=== PATIENT | female | born 1940 | race Caucasian/White ===

== ENCOUNTER 2016-09-02 10:43 | Inpatient (IN) | payer OTHER, MEDICARE ==
[~2016-09-02] VITALS: Ht 162.6 cm; Wt 89.4 kg
[2016-09-02 10:43] VITALS: BP 144/75; PULSE 103; RESP 22; TEMP 97.2; O2SAT 96
[2016-09-02] MEDS ORDERED: KETOROLAC TROMETHAMINE 30 MG VIAL IVP ONE (11:15)
[2016-09-02] MEDS ORDERED: ONDANSETRON HCL 4 MG/2 ML VIAL IVP ONE (11:15)
[2016-09-02] MEDS ORDERED: HYDROmorphone 1 MG INJ. 1 MG/ML AMPUL IVP ONE ×2 (11:30→12:30)
[2016-09-02 11:36] LABS: ANION GAP 11 (5-15); CALCIUM 10.6 mg/dL (8.4-11.0); CHLORIDE 100 mmol/L (98-107); CREATININE 0.57 mg/dL (0.55-1.30); GLUCOSE 137 mg/dL (70-99); POTASSIUM 3.2 mmol/L (3.5-5.1); SODIUM SERUM 140 mmol/L (136-145); UREA NITROGEN, BLOOD 15 mg/dL (8-21)
[2016-09-02 11:37] LABS: BASOPHILS # (AUTO) 0.3 K/uL (0.0-0.2); BASOPHILS % (AUTO) 2.5 % (0.0-2.0); HEMOGLOBIN 15.3 g/dL (12.0-16.0); LYMPHOCYTES # (AUTO) 0.9 K/uL (1.0-5.5); LYMPHOCYTES % (AUTO) 8.1 % (20.5-51.5); MEAN CORPUSCULAR HEMOGLOBIN 30 pg (27-31); MEAN CORPUSCULAR HGB CONC 34 % (32-36); MEAN CORPUSCULAR VOLUME 87 fL (79.0-98.0); MONOCYTES # (AUTO) 0.5 K/uL (0.0-1.0); MONOCYTES % (AUTO) 4.9 % (1.7-9.3); NEUTROPHILS # (AUTO) 8.9 K/uL (1.8-7.7); NEUTROPHILS % (AUTO) 84.5 % (40.0-70.0); PLATELET COUNT (AUTO) 235 K/uL (130-430); RED BLOOD CELL COUNT(AUTO) 5.16 MIL/uL (4.2-6.2); RED CELL DISTRIBUTION WIDTH 12.2 % (9.0-15.0); WHITE BLOOD COUNT (AUTO) 10.6 K/uL (4.8-10.8)
[2016-09-02 11:40] LABS: ALANINE AMINOTRANSFERASE 46 U/L (12-78); ALBUMIN 4.4 g/dL (3.4-4.8); AMYLASE 14 U/L (0-100); ASPARTATE AMINOTRANSFERASE 25 U/L (10-37); LIPASE 74 U/L (73-393); TOTAL BILIRUBIN 0.7 mg/dL (0.0-1.0); TOTAL PROTEIN, SERUM 8.4 g/dL (6.4-8.3)
[2016-09-02] MEDS ORDERED: NACL 0.9% 1,000 ML IV ONE (13:00)
[2016-09-02 14:14] VITALS: BP 151/85; PULSE 93; RESP 20; TEMP 97.6; O2SAT 93
[2016-09-02] MEDS ORDERED: ONDANSETRON HCL 4 MG/2 ML VIAL IVP PRN (14:30)
[2016-09-02] MEDS ORDERED: LR 1,000 ML IV SCH (14:30)
[2016-09-02] MEDS ORDERED: IPRATROPIUM/ALBUTEROL SULFATE 3 ML AMPUL.NEB INH PRN (14:30)
[2016-09-02] MEDS ORDERED: GASTROGRAFIN 120 ML ONE (14:52)
[2016-09-02] MEDS ORDERED: FAMOTIDINE PF 20 MG/2 ML VIAL IVP ONE (15:00)
[2016-09-02] MEDS ORDERED: POTASSIUM CHLORIDE 40 MEQ, LIDOCAINE JECT 2% PF 100 MG 50 MG in NS 250 ML IV ONE (15:30)
[2016-09-02] MEDS: MORPHINE 2 MG/ML INJ. SYRINGE IVP PRN ×2 (16:13→23:14)
[2016-09-02] MEDS ORDERED: DEXTROSE 50% JECT 50 ML DISP.SYRIN IVP PRN (16:15)
[2016-09-02] MEDS ORDERED: INSULIN REGULAR, HUMAN 100 UNITS/ML, 10 ML VIAL (novoLIN R) SUBCUT PRN (16:15)
[2016-09-02] MEDS: LORazepam 2 MG/ML VIAL IVP PRN (16:23)
[2016-09-02 16:30] VITALS: BP 151/91; PULSE 100; RESP 20; TEMP 98.6; O2SAT 97
[2016-09-02] MEDS: MORPHINE 4 MG/ML INJ. SYRINGE IVP PRN ×2 (18:23→19:58)
[2016-09-02 18:24] VITALS: BP 144/91; PULSE 97; RESP 18; O2SAT 98
[2016-09-02 20:05] VITALS: BP 148/76; PULSE 61; RESP 18; TEMP 98; O2SAT 96
[2016-09-02] MEDS: FAMOTIDINE PF 20 MG/2 ML VIAL IVP SCH (20:27)
[2016-09-02] MEDS: D5LR 1,000 ML IV SCH (21:04)
[2016-09-02 22:01] LABS: BILIRUBIN,URINE 3+ (NEGATIVE); BLOOD, URINE NEGATIVE (NEGATIVE); CLARITY/URINE HAZY (CLEAR); COLOR,URINE AMBER (YELLOW); GLUCOSE,URINE NEGATIVE (NEGATIVE); KETONES,URINE 1+ (NEGATIVE); LEUKOCYTE ESTERASE ,URINE NEGATIVE (NEGATIVE); NITRITE, URINE NEGATIVE (NEGATIVE); PH,URINE 5.5 (5.0-8.0); PROTEIN URINE 2+ (NEGATIVE)
[2016-09-02 22:06] LABS: BACTERIA,URINE FEW /HPF (None Seen); HYALINE CASTS, URINE 0-10 /LPF (None Seen); RBC,URINE 0-3 /HPF (0-3); WBC,URINE 0-3 /HPF (0-3)
[2016-09-02 22:07] LABS: MUCUS,URINE None Seen /LPF (None Seen)
[2016-09-03] VITALS (7 sets, daily range): BP systolic 129–159; BP diastolic 71–94; PULSE 89–109; RESP 16–20; TEMP 97.1–97.9; O2SAT 91–98
[2016-09-03] MEDS: LORazepam 2 MG/ML VIAL IVP PRN (00:37)
[2016-09-03] MEDS: MORPHINE 2 MG/ML INJ. SYRINGE IVP PRN (06:21)
[2016-09-03 06:48] LABS: HEMOGLOBIN 16.4 g/dL (12.0-16.0); MEAN CORPUSCULAR HEMOGLOBIN 31 pg (27-31); MEAN CORPUSCULAR HGB CONC 35 % (32-36); MEAN CORPUSCULAR VOLUME 88 fL (79.0-98.0); PLATELET COUNT (AUTO) 278 K/uL (130-430); RED BLOOD CELL COUNT(AUTO) 5.34 MIL/uL (4.2-6.2); RED CELL DISTRIBUTION WIDTH 12.3 % (9.0-15.0)
[2016-09-03] MEDS: D5LR 1,000 ML IV SCH ×2 (06:49→13:10)
[2016-09-03 07:21] LABS: ALANINE AMINOTRANSFERASE 36 U/L (12-78); ALBUMIN 4.4 g/dL (3.4-4.8); ANION GAP 8 (5-15); ASPARTATE AMINOTRANSFERASE 21 U/L (10-37); CALCIUM 11.4 mg/dL (8.4-11.0); CHLORIDE 105 mmol/L (98-107); CREATININE 0.89 mg/dL (0.55-1.30); GLUCOSE 141 mg/dL (70-99); LIPASE 157 U/L (73-393); PHOSPHORUS 2.7 mg/dL (2.7-4.5); POTASSIUM 3.5 mmol/L (3.5-5.1); SODIUM SERUM 145 mmol/L (136-145); TOTAL BILIRUBIN 0.7 mg/dL (0.0-1.0); TOTAL PROTEIN, SERUM 8.5 g/dL (6.4-8.3); UREA NITROGEN, BLOOD 25 mg/dL (8-21)
[2016-09-03 08:06] LABS: WHITE BLOOD COUNT (AUTO) 16.1 K/uL (4.8-10.8)
[2016-09-03] MEDS: MORPHINE 4 MG/ML INJ. SYRINGE IVP PRN ×3 (09:20→18:07)
[2016-09-03] MEDS: FAMOTIDINE PF 20 MG/2 ML VIAL IVP SCH ×2 (09:26→22:10)
[2016-09-03 09:50] LABS: ATYPICAL LYMPHOCYTES % 0 % (0-0); BAND % (MANUAL) 1 % (0-6); BASOPHILS % (MANUAL) 0 % (0-2); EOSINOPHILS % (MANUAL) 0 % (0-7); LYMPHOCYTES % (MANUAL) 10 % (20-46); MONOCYTES % (MANUAL) 12 % (0-11)
[2016-09-03] MEDS: IPRATROPIUM/ALBUTEROL SULFATE 3 ML AMPUL.NEB INH SCH (20:15)
[2016-09-03] MEDS: BUDESONIDE 0.5 MG/2 ML AMPUL.NEB INH SCH (20:16)
[2016-09-03] MEDS: methylPREDNISolone SOD SUCC/PF 62.5 MG/ML VIAL IVP SCH (22:10)
[2016-09-04] MEDS: D5LR 1,000 ML IV SCH ×3 (00:34→14:36)
[2016-09-04 00:50] VITALS: BP 153/77; PULSE 101; RESP 18; TEMP 96.6; O2SAT 95
[2016-09-04] MEDS: IPRATROPIUM/ALBUTEROL SULFATE 3 ML AMPUL.NEB INH SCH ×4 (01:30→20:15)
[2016-09-04 03:33] VITALS: BP 140/72; PULSE 93; RESP 18; TEMP 97.6; O2SAT 98
[2016-09-04] MEDS: MORPHINE 4 MG/ML INJ. SYRINGE IVP PRN ×2 (04:20→11:56)
[2016-09-04] MEDS: methylPREDNISolone SOD SUCC/PF 62.5 MG/ML VIAL IVP SCH ×3 (06:00→22:44)
[2016-09-04] MEDS: BUDESONIDE 0.5 MG/2 ML AMPUL.NEB INH SCH ×2 (07:36→20:15)
[2016-09-04 08:00] VITALS: BP 126/66; PULSE 91; RESP 16; TEMP 98.1; O2SAT 98
[2016-09-04] MEDS: FAMOTIDINE PF 20 MG/2 ML VIAL IVP SCH ×2 (08:08→22:44)
[2016-09-04] MEDS ORDERED: GASTROGRAFIN 120 ML ONE (11:18)
[2016-09-04 11:31] VITALS: BP 151/70; PULSE 97; RESP 16; TEMP 97; O2SAT 97
[2016-09-04 11:39] LABS: INR 1.2 (0.8-1.2); PROTHROMBIN TIME 12.8 SECS (9.5-12.5)
[2016-09-04 15:30] VITALS: BP 146/81; PULSE 96; RESP 16; TEMP 97; O2SAT 96
[2016-09-04 18:25] LABS: ANION GAP 4 (5-15); CALCIUM 10.5 mg/dL (8.4-11.0); CHLORIDE 114 mmol/L (98-107); CREATININE 0.67 mg/dL (0.55-1.30); GLUCOSE 153 mg/dL (70-99); POTASSIUM 3.2 mmol/L (3.5-5.1); SODIUM SERUM 151 mmol/L (136-145); UREA NITROGEN, BLOOD 26 mg/dL (8-21)
[2016-09-04 18:32] LABS: MEAN CORPUSCULAR HEMOGLOBIN 29 pg (27-31); MEAN CORPUSCULAR HGB CONC 33 % (32-36); MEAN CORPUSCULAR VOLUME 89 fL (79.0-98.0); RED CELL DISTRIBUTION WIDTH 12.7 % (9.0-15.0)
[2016-09-04 18:33] LABS: HEMATOCRIT 43.5 % (36-48); HEMOGLOBIN 14.2 g/dL (12.0-16.0); PLATELET COUNT (AUTO) 209 K/uL (130-430); RED BLOOD CELL COUNT(AUTO) 4.87 MIL/uL (4.2-6.2); WHITE BLOOD COUNT (AUTO) 12.3 K/uL (4.8-10.8)
[2016-09-04 18:37] LABS: BAND % (MANUAL) 0 % (0-6); BASOPHILS % (MANUAL) 0 % (0-2); EOSINOPHILS % (MANUAL) 0 % (0-7); LYMPHOCYTES % (MANUAL) 9 % (20-46); MONOCYTES % (MANUAL) 10 % (0-11)
[2016-09-04 20:00] VITALS: BP 135/78; PULSE 88; RESP 18; TEMP 97.5; O2SAT 98
[2016-09-04] MEDS: KCL 40 mEq in D5W 1000 mL 1,000 ML IV SCH (20:15)
[2016-09-04] MEDS ORDERED: KCL 40 mEq in 100 mL (PREMIX) 100 ML IV ONE (22:38)
[2016-09-05] MEDS: IPRATROPIUM/ALBUTEROL SULFATE 3 ML AMPUL.NEB INH SCH ×3 (01:00→20:16)
[2016-09-05 01:37] VITALS: BP 116/57; PULSE 88; RESP 17; TEMP 97.6; O2SAT 99
[2016-09-05 03:40] VITALS: BP 127/75; PULSE 89; RESP 18; TEMP 97; O2SAT 95
[2016-09-05] MEDS: methylPREDNISolone SOD SUCC/PF 62.5 MG/ML VIAL IVP SCH (06:22)
[2016-09-05] MEDS: BUDESONIDE 0.5 MG/2 ML AMPUL.NEB INH SCH ×2 (07:34→20:16)
[2016-09-05 07:35] VITALS: BP 150/84; PULSE 87; RESP 18; TEMP 96.6; O2SAT 100
[2016-09-05 08:27] LABS: ANION GAP 4 (5-15); CALCIUM 9.8 mg/dL (8.4-11.0); CHLORIDE 108 mmol/L (98-107); CREATININE 0.54 mg/dL (0.55-1.30); GLUCOSE 130 mg/dL (70-99); POTASSIUM 3.4 mmol/L (3.5-5.1); SODIUM SERUM 146 mmol/L (136-145); UREA NITROGEN, BLOOD 21 mg/dL (8-21)
[2016-09-05 08:40] LABS: BASOPHILS % (AUTO) 0.2 % (0.0-2.0); LYMPHOCYTES # (AUTO) 0.7 K/uL (1.0-5.5); LYMPHOCYTES % (AUTO) 6.2 % (20.5-51.5); MEAN CORPUSCULAR HEMOGLOBIN 31 pg (27-31); MEAN CORPUSCULAR HGB CONC 34 % (32-36); MEAN CORPUSCULAR VOLUME 89 fL (79.0-98.0); MONOCYTES # (AUTO) 0.4 K/uL (0.0-1.0); MONOCYTES % (AUTO) 3.8 % (1.7-9.3); NEUTROPHILS # (AUTO) 9.9 K/uL (1.8-7.7); NEUTROPHILS % (AUTO) 89.8 % (40.0-70.0); PLATELET COUNT (AUTO) 166 K/uL (130-430); RED BLOOD CELL COUNT(AUTO) 4.27 MIL/uL (4.2-6.2); RED CELL DISTRIBUTION WIDTH 12.6 % (9.0-15.0)
[2016-09-05] MEDS: KCL 40 mEq in D5W 1000 mL 1,000 ML IV SCH (10:18)
[2016-09-05] MEDS: FAMOTIDINE PF 20 MG/2 ML VIAL IVP SCH ×2 (10:24→22:38)
[2016-09-05] MEDS ORDERED: POTASSIUM CHLORIDE 20 MEQ TAB.PRT.SR PO ONE (10:45)
[2016-09-05 11:37] VITALS: BP 139/74; PULSE 102; RESP 18; TEMP 96.4
[2016-09-05] MEDS ORDERED: POTASSIUM CHLORIDE 40 MEQ, LIDOCAINE JECT 2% PF 100 MG 50 MG in NS 250 ML IV ONE (13:45)
[2016-09-05] MEDS ORDERED: ALPRAZolam 0.25 MG TABLET PO PRN (16:45)
[2016-09-05] MEDS ORDERED: PREDNISONE 5 MG TABLET PO ONE (16:45)
[2016-09-05 17:09] VITALS: BP 128/70; PULSE 100; RESP 18; TEMP 96.7; O2SAT 100
[2016-09-05 19:30] VITALS: BP 142/84; PULSE 87; RESP 18; TEMP 97.4; O2SAT 100
[2016-09-05] MEDS ORDERED: KCL 40 mEq in 100 mL (PREMIX) 100 ML IV ONE (23:46)
[2016-09-06] MEDS: KCL 40 mEq in D5W 1000 mL 1,000 ML IV SCH
[2016-09-06] MEDS: IPRATROPIUM/ALBUTEROL SULFATE 3 ML AMPUL.NEB INH SCH ×3 (01:00→13:54)
[2016-09-06 01:42] VITALS: BP 142/77; PULSE 87; RESP 16; TEMP 98.3; O2SAT 99
[2016-09-06 04:52] VITALS: BP 150/77; PULSE 89; RESP 17; TEMP 97.2; O2SAT 98
[2016-09-06 06:49] LABS: BASOPHILS % (AUTO) 0.2 % (0.0-2.0); EOSINOPHILS % (AUTO) 0.1 % (0.0-4.0); HEMATOCRIT 38.8 % (36-48); HEMOGLOBIN 13.3 g/dL (12.0-16.0); LYMPHOCYTES # (AUTO) 1.7 K/uL (1.0-5.5); LYMPHOCYTES % (AUTO) 14.4 % (20.5-51.5); MEAN CORPUSCULAR HEMOGLOBIN 31 pg (27-31); MEAN CORPUSCULAR HGB CONC 34 % (32-36); MEAN CORPUSCULAR VOLUME 90 fL (79.0-98.0); MONOCYTES % (AUTO) 8.7 % (1.7-9.3); NEUTROPHILS # (AUTO) 9.1 K/uL (1.8-7.7); NEUTROPHILS % (AUTO) 76.6 % (40.0-70.0); PLATELET COUNT (AUTO) 169 K/uL (130-430); RED CELL DISTRIBUTION WIDTH 12.9 % (9.0-15.0); WHITE BLOOD COUNT (AUTO) 11.8 K/uL (4.8-10.8)
[2016-09-06 06:56] LABS: ALANINE AMINOTRANSFERASE 75 U/L (12-78); ANION GAP 4 (5-15); ASPARTATE AMINOTRANSFERASE 47 U/L (10-37); CALCIUM 9.5 mg/dL (8.4-11.0); CHLORIDE 107 mmol/L (98-107); CREATININE 0.61 mg/dL (0.55-1.30); GLUCOSE 96 mg/dL (70-99); POTASSIUM 3.7 mmol/L (3.5-5.1); SODIUM SERUM 141 mmol/L (136-145); TOTAL BILIRUBIN 0.5 mg/dL (0.0-1.0); TOTAL PROTEIN, SERUM 6.2 g/dL (6.4-8.3); UREA NITROGEN, BLOOD 14 mg/dL (8-21)
[2016-09-06] MEDS: BUDESONIDE 0.5 MG/2 ML AMPUL.NEB INH SCH (07:00)
[2016-09-06] MEDS: FAMOTIDINE PF 20 MG/2 ML VIAL IVP SCH (08:48)
[2016-09-06] MEDS ORDERED: PREDNISONE 5 MG TABLET PO SCH (09:00)
[2016-09-06] MEDS ORDERED: methylPREDNISolone SOD SUCC 40 MG/ML VIAL IVP SCH (09:00)
[2016-09-06] MEDS: LORazepam 2 MG/ML VIAL IVP PRN (09:58)
[2016-09-06 12:08] VITALS: BP 143/86; PULSE 101; RESP 20; TEMP 98.3; O2SAT 99
[2016-09-06] MEDS ORDERED: MAGNESIUM SULFATE IN WATER 100 ML IV ONE (13:30)
[2016-09-06 16:10] VITALS: BP 111/72; PULSE 81; RESP 16; TEMP 98.5; O2SAT 100
[2016-09-06 17:07] VITALS: BP 134/80; PULSE 87; RESP 20; TEMP 98.1; O2SAT 97
[2017-01-25] MEDS ORDERED: ATEN50TA PO (14:37)
[2017-01-25] MEDS ORDERED: SUCR1ORA2 PO (14:37)
[2017-01-25] MEDS ORDERED: CILO100T PO (14:37)
[2017-01-25] MEDS ORDERED: CLID1CAP PO (14:37)
[2017-01-25] MEDS ORDERED: HYDR25TA4 PO (14:37)
[2017-01-25] MEDS ORDERED: ALPR0.2583 PO (14:37)
== END 2016-09-06 17:30 | disposition home or self-care (01) | DRG 389 ==
LOC: SED 10:43 → STU 13:22 → SMU 09-05 13:42
PROVIDERS: ADMIT Internal Medicine; ATTEND Internal Medicine
DX: K56.60 Unspecified intestinal obstruction (principal); E87.0 Hyperosmolality and hypernatremia; I10 Essential (primary) hypertension; E11.9 Type 2 diabetes mellitus without complications; E66.9 Obesity, unspecified; E87.6 Hypokalemia; G47.33 Obstructive sleep apnea (adult) (pediatric); J45.909 Unspecified asthma, uncomplicated; E83.42 Hypomagnesemia; L23.9 Allergic contact dermatitis, unspecified cause; Z79.52 Long term (current) use of systemic steroids; Z85.118 Personal history of other malignant neoplasm of bronchus and lung; Z87.891 Personal history of nicotine dependence; Z90.2 Acquired absence of lung [part of]; Z99.81 Dependence on supplemental oxygen; Z91.040 Latex allergy status; Z90.710 Acquired absence of both cervix and uterus; Z68.33 Body mass index [BMI] 33.0-33.9, adult
CPT/HCPCS: 36415; 71010; 74000-TC; 74250-TC; 80048; 80053; 81000-TC; 82150-TC; 82962; 83690-TC; 83735-TC; 84100-TC; 85007; 85025; 85027; 85610-TC; 85730-TC; 87045-TC; 87046; 87081; 87230-TC; 89055; 93005; 94640; 94760; 96361; 96374; 96375; 96376; 99285; J1170; J1815; J1885; J2060; J2270; J2405; J2930; J3475; J3480; J3490; J7050; J7060; J7120; J7512; Q9963